=== PATIENT | female | born 1950 | race Caucasian/White ===

== ENCOUNTER 2016-12-31 08:45 | Outpatient (CLI) | payer MEDICARE, MEDICAID ==
[2016-12-31 11:22] LABS: #Basophils 0.1 thou/uL (0.0-0.2); #Eosinphils 0.1 thou/uL (0.0-0.7); #Lymphocytes 1.4 thou/uL (1.20-3.40); #Monocytes 0.6 thou/uL (0.11-0.59); %Basophils 1.2 % (0.0-1.0); %Eosinophils 2.1 % (0.0-10.0); %Lymphocytes 27.4 % (21.0-51.0); %Monocytes 10.9 % (0.0-10.0); %Neutrophils 58.4 % (42.0-75.0); Hemoglobin 14.5 g/dL (12.0-16.0); Mean Corpuscular HGB CONC 34.2 g/dL (32.0-36.0); Mean Corpuscular Volume 96.5 fl (81.0-99.0); Mean Platelet Volume 8.7 fL (7.4-10.4); Platelet Count 193 thou/uL (130-400); RBC Distribution Width 12.2 % (11.5-14.5); White Blood Cell (WBC) Count 5.1 thou/uL (4.8-10.8)
[2016-12-31 11:38] LABS: ALT (SGPT) 15 U/L (8-55); AST (SGOT) 15 U/L (5-34); Albumin 4.2 g/dL (3.4-4.8); Alkaline Phosphatase 41 U/L (40-150); Anion Gap 14 mmol/L (10-20); BUN (Urea Nitrogen) 13 mg/dL (9.8-20.1); Bilirubin, Total 1.5 mg/dL (0.2-1.2); Calc. Creatinine Clearance 0 mL/min (70-130); Calcium 8.6 mg/dL (7.8-10.44); Cardiac Risk 3.1 (Less than 4.5); Chloride 107 mmol/L (98-107); Cholesterol 235 mg/dl (< 200 Desired); Estimated GFR-MDRD 70; Globulin 2.1 g/dL (2.4-3.5); Glucose 84 mg/dL (80-115); HDL Cholesterol 76 mg/dL (>60 Neg Risk); LDL Cholesterol, Calculated 147 mg/dL; Potassium 4.1 mmol/L (3.5-5.1); Protein, Total 6.3 g/dL (6.0-8.3); Sodium 141 mmol/L (136-145); Triglycerides 58 mg/dL (Less than 150)
[2016-12-31 12:11] LABS: Carbon Dioxide 24 mmol/L (23-31)
== END 2016-12-31 08:46 | disposition home or self-care (01) ==
LOC: HPCALD 08:45
PROVIDERS: ATTEND Family Medicine
DX: Z13.6 Encounter for screening for cardiovascular disorders (principal); M81.0 Age-related osteoporosis without current pathological fracture; Z79.899 Other long term (current) drug therapy
CPT/HCPCS: 36415; 80053; 80061; 82306; 82607; 85025

== ENCOUNTER 2017-04-02 16:14 | Outpatient (CLI) | payer MEDICARE, MEDICAID ==
--- NOTE | 2017-04-02 19:10 | RAD ---
RIGHT KNEE FOUR VIEWS: 04/02/17 No acute fracture or joint effusion was seen. Some meniscal and cartilaginous calcification is seen in the lateral compartment of the knee. There is a little irregularity and calcification at the medi al joint space edge, which could be from an old injury. The joint space is normal in width. IMPRESSION: Calcifications as noted but no acute finding. POS: HOME
== END 2017-04-02 16:15 | disposition home or self-care (01) ==
LOC: BURRAD 16:14
PROVIDERS: ATTEND Family Medicine
DX: M25.561 Pain in right knee (principal); M25.861 Other specified joint disorders, right knee